=== PATIENT | female | born 2000 | race Caucasian/White ===

== ENCOUNTER 2019-04-07 20:57 | Emergency (ER) | payer MEDICAID ==
[~2019-04-07] VITALS: Ht 154.9 cm; Wt 54.4 kg
[2019-04-07 21:00] VITALS: BP 98/65
--- NOTE | 2019-04-07 21:12 | NUR ---
PT TAKEN TO BED 7
--- NOTE | 2019-04-07 21:15 | NUR ---
PATIENT PRESENTS TO ED WITH C/O VOMITING BLOOD AT 1800 TODAY. REPORTS X1 EPISODE. HAS PRESCRIPTION FOR GERD BUT HAS NOT TAKEN MEDICATION. REPORTS FEELING "LIGHTHEADED" LATELY WITH HEADACHES, BLURRED VISION, AND A LOT OF HEARTBURN. PATIENT STATES PAIN OF 8/10 AT THIS TIME; VSS; PATIENT POSITIONED FOR COMFORT; HOB ELEVATED; BEDRAILS UP X2; BED DOWN. ER MD MADE AWARE OF PT STATUS.
--- NOTE | 2019-04-07 21:18 | NUR ---
Dr. Barillas examining patient.
[2019-04-07] MEDS ORDERED: DICYCLOMINE HCL LIQUID 20 MG, ALUMINUM HYD/MAG/SIMETHICONE 30 ML, LIDOCAINE VISCOUS 2% ... PO ONE ×3 (21:35)
[2019-04-07 21:56] LABS: BASOPHILS # (AUTO) 0.1 K/uL (0.00-0.22); BASOPHILS % (AUTO) 0.6 % (0.0-2.0); EOSINOPHILS % (AUTO) 0.3 % (0.0-4.0); HEMATOCRIT 39.9 % (36-48); HEMOGLOBIN 13.1 g/dL (12.0-16.0); LYMPHOCYTES # (AUTO) 1.8 K/uL (2.5-16.5); LYMPHOCYTES % (AUTO) 20.3 % (20.5-51.1); MEAN CORPUSCULAR HEMOGLOBIN 29 pg (27-31); MEAN CORPUSCULAR HGB CONC 33 g/dL (33-37); MONOCYTES # (AUTO) 0.5 K/uL (0.8-1.0); MONOCYTES % (AUTO) 5.3 % (1.7-9.3); NEUTROPHILS # (AUTO) 6.3 K/uL (1.8-7.7); NEUTROPHILS % (AUTO) 73.5 % (42.2-75.2); PLATELET COUNT (AUTO) 203 K/uL (140-450); RED BLOOD CELL COUNT(AUTO) 4.58 MIL/uL (4.20-5.40); RED CELL DISTRIBUTION WIDTH 13.3 % (11.6-13.7); WHITE BLOOD COUNT (AUTO) 8.6 K/uL (4.5-11.0)
[2019-04-07 22:20] LABS: ANION GAP 14.8 (8-16); CARBON DIOXIDE 25.9 mmol/L (21-32); CREATININE 0.8 mg/dL (0.6-1.3); POTASSIUM 3.7 mmol/L (3.5-5.1)
[2019-04-07 22:26] LABS: ALBUMIN 3.9 g/dL (3.4-5.0); TOTAL BILIRUBIN 1.3 mg/dL (0.0-1.0)
[2019-04-07 22:58] VITALS: BP 106/72
--- NOTE | 2019-04-07 22:58 | NUR ---
Patient discharged with v/s stable. Written and verbal after care instructions given and explained. Patient alert, oriented and verbalized understanding of instructions. Ambulatory with steady gait. All questions addressed prior to discharge. ID band removed. Patient advised to follow up with PMD. Rx of MYLANTA given. Patient educated on indication of medication including possible reaction and side effects. Opportunity to ask questions provided and answered.
== END 2019-04-07 22:58 | disposition home or self-care (01) ==
LOC: MED 20:57
DX: K29.70 Gastritis, unspecified, without bleeding (principal); R51 Headache
CPT/HCPCS: 36415; 80053; 83690; 85025; 99283

== ENCOUNTER 2019-05-07 00:13 | Emergency (ER) | payer MEDICAID ==
[~2019-05-07] VITALS: Ht 160 cm; Wt 42.9 kg
[2019-05-07 00:17] VITALS: BP 108/60
--- NOTE | 2019-05-07 00:17 | NUR ---
to bed # 03 ambulatory
--- NOTE | 2019-05-07 00:30 | NUR ---
APATIENT PRESENTS TO ED WITH rt rib pain, s/p fall a week ago. DENIES N/V/D; SKIN IS PINK/WARM/DRY; AAOX4 WITH EVEN AND STEADY GAIT; LUNGS CLEAR BL; HR EVEN AND REGULAR; PT DENIES ANY FEVER, CP, SOB, OR COUGH AT THIS TIME; PATIENT STATES PAIN OF 5/10 AT THIS TIME; VSS; PATIENT POSITIONED FOR COMFORT; HOB ELEVATED; BEDRAILS UP X2; BED DOWN. ER MD MADE AWARE OF PT STATUS.
[2019-05-07] MEDS ORDERED: KETOROLAC 60 MG/2 ML VIAL IM ONE (00:35)
[2019-05-07 01:01] VITALS: BP 104/66
--- NOTE | 2019-05-07 01:03 | NUR ---
Patient discharged with v/s stable. Written and verbal after care instructions given and explained. Patient alert, oriented and verbalized understanding of instructions. Ambulatory with steady gait. All questions addressed prior to discharge. ID band removed. Patient advised to follow up with PMD. Rx of norco, motrin given. Patient educated on indication of medication including possible reaction and side effects. Opportunity to ask questions provided and answered.
== END 2019-05-07 01:03 | disposition home or self-care (01) ==
LOC: MED 00:13
DX: S20.211A Contusion of right front wall of thorax, initial encounter (principal); K21.9 Gastro-esophageal reflux disease without esophagitis; F17.210 Nicotine dependence, cigarettes, uncomplicated; W18.39XA Other fall on same level, initial encounter; Y93.89 Activity, other specified; Y92.89 Other specified places as the place of occurrence of the external cause; Y99.8 Other external cause status
CPT/HCPCS: 96372; 99283; J1885

== ENCOUNTER 2023-11-14 22:36 | Emergency (ER) | payer MEDICAID, OTHER ==
[~2023-11-14] VITALS: Ht 160 cm; Wt 55.3 kg
[2023-11-14 22:46] VITALS: BP 96/67; PULSE 99; RESP 16; TEMP 98.2; O2SAT 98
[2023-11-14 23:10] VITALS: BP 96/67; PULSE 99; RESP 16; TEMP 98.2; O2SAT 98
[2023-11-14 23:35] LABS: FLU A ANTIGEN negative (NEGATIVE); FLU B ANTIGEN NEGATIVE (NEGATIVE)
[2023-11-15] MEDS ORDERED: PSEU120T23 PO (01:15)
[2023-11-15] MEDS ORDERED: ROB PO (01:15)
== END 2023-11-15 02:50 | disposition home or self-care (01) ==
LOC: MED 22:36
DX: J06.9 Acute upper respiratory infection, unspecified (principal); Z20.822 Contact with and (suspected) exposure to COVID-19; K21.9 Gastro-esophageal reflux disease without esophagitis; Z79.899 Other long term (current) drug therapy
CPT/HCPCS: 71045; 87426; 87804; 99284; Q0092

== ENCOUNTER 2024-07-14 00:15 | Emergency (ER) | payer OTHER ==
[~2024-07-14] VITALS: Ht 160 cm; Wt 54.4 kg
[~2024-07-14 00:15] MED LIST: PSEU120T23 PO; ROB PO
[2024-07-14 00:29] VITALS: BP 106/70; PULSE 65; RESP 18; TEMP 98.3; O2SAT 100
[2024-07-14] MEDS: KETOROLAC 30 MG/ML VIAL IM ONE (03:45)
[2024-07-14] MEDS: ACETAMINOPHEN EXTRA STRENGTH 500 MG TAB PO ONE (04:08)
[2024-07-14 06:00] VITALS: BP 115/80; PULSE 78; RESP 16; TEMP 98.3; O2SAT 100
== END 2024-07-14 06:00 | disposition home or self-care (01) ==
LOC: MED 00:15
DX: S06.0X0A Concussion without loss of consciousness, initial encounter (principal); M25.511 Pain in right shoulder; M25.531 Pain in right wrist; K21.9 Gastro-esophageal reflux disease without esophagitis; Z79.899 Other long term (current) drug therapy; V89.2XXA Person injured in unspecified motor-vehicle accident, traffic, initial encounter; Y93.89 Activity, other specified; Y92.410 Unspecified street and highway as the place of occurrence of the external cause; Y99.8 Other external cause status
CPT/HCPCS: 73030; 73110; 81025; 96372; 99284; Q0092